=== PATIENT | male | born 1980 | race Caucasian/White ===

== ENCOUNTER 2020-08-08 13:53 | Emergency (ER) | payer OTHER ==
[~2020-08-08] VITALS: Ht 190.5 cm; Wt 97.5 kg
[~2020-08-08 13:53] MED LIST: ACETAMINOPHEN325 M1; CARAFATE 1 GM TA1 G1 PO; IBUPROFEN 600600 M1 PO; IBUPROFEN 800800 M1 PO; KEFLEX500 MG PO; MULTIVITAMINS1 EAC7 PO; NOHOMEMEDICATIONS; NORCO 5-325 TA1 EACH PO; NORFLEX100 MG PO; OMEPRAZOLE40 MG PO; PANTOPRAZOLE SO40 M1 PO; PENICILLIN V P500 MG PO; PERCOCET 5-3251 EACH PO; ULTRAM 50MG TAB50 MG PO; VALIUM2 MG PO; ZOFRAN ODT4 MG DISSOLVE; ZOFRAN ODT4 MG PO; ZOFRAN4 MG PO
[2020-08-08 14:45] LABS: ABSOLUTE NEUTROPHILS 4.1 thou/uL (1.4-8.2); BASOPHILS 0.6 % (0.0-2.0); HEMOGLOBIN 14.7 gm/dL (14.0-18.0)
[2020-08-08 14:45] LABS: URINE BILIRUBIN NEGATIVE (Negative); URINE BLOOD NEGATIVE (Negative); URINE CLARITY CLEAR; URINE COLOR YELLOW; URINE GLUCOSE-RANDOM* NEGATIVE (Negative); URINE KETONES NEGATIVE (Negative); URINE LEUKOCYTES-REFLEX NEGATIVE (Negative); URINE NITRITE-REFLEX NEGATIVE (Negative); URINE PROTEIN (DIPSTICK) NEGATIVE (Negative)
[2020-08-08 14:47] LABS: LYMPHOCYTES 15.4 % (24.0-44.0); MCH 30.8 pg (26.0-34.0); MCHC 34.2 g/dL (28.0-37.0); MCV 89.9 fL (80.0-100.0); MONOCYTES 3.4 % (1.0-8.0); PLATELET COUNT 116 thou/uL (150-400); POLYS 80.6 % (36.0-66.0); RBC 4.79 mil/uL (4.50-6.00); RDW 13.1 % (10.5-14.5); WBC 5.1 thou/uL (4.0-11.0)
[2020-08-08 14:52] LABS: CALCIUM 8.7 mg/dL (8.5-10.1); CREATININE 0.8 mg/dL (0.7-1.3); POTASSIUM 3.5 mmol/L (3.5-5.1)
[2020-08-08] MEDS ORDERED: ELDERBERRY-VIT1 EACH PO (15:43)
[2020-08-08] MEDS ORDERED: [UNRECOGNIZED DRUG - OTHER] (15:43)
[2020-08-08] MEDS ORDERED: CIPRO500 M1 PO (16:09)
[2020-08-08] MEDS ORDERED: HYDROCODON-ACE1 EAC7 PO (16:10)
[2020-08-08 16:24] VITALS: BP 149/95
== END 2020-08-08 16:27 | disposition home or self-care (01) ==
LOC: ER 13:53
PROVIDERS: Nurse Practitioner
DX: N50.811 Right testicular pain (principal); N50.812 Left testicular pain; N41.9 Inflammatory disease of prostate, unspecified; I10 Essential (primary) hypertension; Z88.8 Allergy status to other drugs, medicaments and biological substances; Z87.891 Personal history of nicotine dependence